=== PATIENT | female | born 1990 | race Caucasian/White ===

== ENCOUNTER 2017-05-09 05:23 | Observation (INO) | payer MEDICAID ==
[2017-05-09 06:24] LABS: Appearance CLOUDY (CLEAR); Bilirubin NEGATIVE (NEGATIVE); Blood 50 Ery/ul (0-5); Glucose 50 mg/dL (NEGATIVE); Ketones NEGATIVE (NEGATIVE); Leukocyte Esterase 2+ (NEGATIVE); Nitrite NEGATIVE (NEGATIVE); Protein,Urine Dip TRACE (Negative); Urobilinogen NORMAL mg/dL (0-1)
[2017-05-09 06:25] LABS: Bacteria MANY /HPF (NEGATIVE); Epithelial Cells MANY /HPF (FEW)
[2017-05-09 06:28] LABS: Amphetamine,Urine NEGATIVE (NEGATIVE); Barbiturate,Urine NEGATIVE (NEGATIVE); Benzodiazepine,Urine NEGATIVE (NEGATIVE); Cocaine,Urine NEGATIVE (NEGATIVE); Methadone,Urine NEGATIVE (NEGATIVE); Opiate,Urine NEGATIVE (NEGATIVE); PCP,Urine NEGATIVE (NEGATIVE); THC,Urine NEGATIVE (NEGATIVE)
[2017-05-09] MEDS ORDERED: Lactated Ringers 1,000 ML IV ONE (07:32)
[2017-05-09] MEDS ORDERED: TYLENOL 325 MG PO PRN (07:34)
[2017-05-09] MEDS ORDERED: Lactated Ringers 1,000 ML IV SCH (08:00)
[2017-05-09 08:43] LABS: BASOPHIL % 0.2 % (0.0-0.4); Basophil (Absolute #) 0.02 (0-0.4); Eosinophil % 0.1 % (0.00-5.0); Eosinophil (Absolute #) 0.01 (0-0.5); Granulocyte Absolute (ANC) 9.88 (1.4-6.9); Granulocytes % 86.9 % (36.0-66.0); Hematocrit 37.6 % (35-47); Hemoglobin 12.2 gm/dl (12.0-16.0); Lymphocyte (Absolute #) 1.01 (1.0-4.6); Lymphocytes % 8.9 % (24.0-44.0); Mean Cell Volume 84.5 fl (78-100); Mean Corpuscular Hemoglobin 27.4 pg (26-32); Mean Corpuscular Hgb Concent. 32.4 g/dl (32-36); Monocyte (Absolute #) 0.44 (0.0-1.3); Monocytes % 3.9 % (0.0-12.0); Platelet Count 179 K/mm3 (150-450); Red Blood Count 4.45 M/mm3 (4.1-5.4); Red Cell Distribution Width 15.4 % (11.5-14.0); White Blood Count 11.4 K/mm3 (4.0-10.5)
[2017-05-09 09:01] LABS: ALBUMIN 3.5 g/dL (3.5-5.0); ALKALINE PHOSPHATASE 90 U/L (38-126); BLOOD UREA NITROGEN 6 mg/dL (7-17); CHLORIDE 106 mmol/L (98-107); Calcium 8.7 mg/dL (8.4-10.2); Carbon Dioxide 19 mmol/L (22-30); Creatinine 1 0.49 mg/dL (0.52-1.04); Glucose 97 mg/dL (74-106); Potassium 3.1 mmol/L (3.5-5.1); SGOT/AST 19 U/L (14-36); SGPT/ALT 10 U/L (0-35); SODIUM 137 mmol/L (137-145); Total Protein 6.9 g/dL (6.3-8.2)
--- NOTE | 2017-05-09 09:48 | XRAY ---
Indication: well-being. Bleeding yesterday. 2-dimensional OB ultrasound performed. Comparison: February 28, 2017. Again there is a single viable intrauterine in cephalic presentation. heart rate 151 bpm. Normal three-vessel cord. Visualized stomach and bladder appear unremarkable. Placenta is again anterior without abruption/previa. BPD measures 8.16 cm corresponding to 32 weeks 6 days. HC measures 29.80 cm corresponding to 33 weeks 0 day. AC measures 29.54 cm corresponding to 33 weeks 4 days. FL measures 5.89 cm corresponding to 30 weeks 5 days. KSENIA is 25 cm. Impression: Single viable intrauterine with mean gestational age 32 weeks 4 days. Normal progression in .
[2017-05-09 14:43] VITALS: BP 119/56; PULSE 88
== END 2017-05-09 13:00 | disposition home or self-care (01) ==
LOC: OB 05:23
PROVIDERS: ADMIT Family Medicine; ATTEND Family Medicine
DX: Z34.03 Encounter for supervision of normal first pregnancy, third trimester (principal)
CPT/HCPCS: 36415; 76805; 80053; 80307; 81000; 85025; 87086; G0378; A9270-GY

== ENCOUNTER 2017-06-22 22:08 | Observation (INO) | payer MEDICAID ==
[2017-06-22 22:48] VITALS: BP 144/67; PULSE 100
[2017-06-22 23:20] LABS: Amphetamine,Urine NEGATIVE (NEGATIVE); Barbiturate,Urine NEGATIVE (NEGATIVE); Benzodiazepine,Urine NEGATIVE (NEGATIVE); Cocaine,Urine NEGATIVE (NEGATIVE); Methadone,Urine NEGATIVE (NEGATIVE); Opiate,Urine NEGATIVE (NEGATIVE); PCP,Urine NEGATIVE (NEGATIVE); THC,Urine NEGATIVE (NEGATIVE)
== END 2017-06-23 00:30 | disposition home or self-care (01) ==
LOC: OB 22:08 → UNDOADMOB 22:08 → UNDODISOB 06-23 00:30
PROVIDERS: ADMIT Family Medicine; ATTEND Family Medicine
DX: Z34.83 Encounter for supervision of other normal pregnancy, third trimester (principal)
CPT/HCPCS: 80307; G0378

== ENCOUNTER 2017-06-28 05:07 | Inpatient (IN) | payer MEDICAID ==
[2017-06-28] MEDS ORDERED: XYLOCAINE 1% HCL 20 ML MDV IJ PRN (05:09)
[2017-06-28] MEDS ORDERED: BRETHINE 1 MG/ML SQ PRN (05:09)
[2017-06-28] MEDS ORDERED: PITOCIN 30 UNITS/ LR 500 ML 500 ML IV SCH ×2 (05:30)
[2017-06-28 06:05] LABS: Amphetamine,Urine NEGATIVE (NEGATIVE); Barbiturate,Urine NEGATIVE (NEGATIVE); Benzodiazepine,Urine NEGATIVE (NEGATIVE); Cocaine,Urine NEGATIVE (NEGATIVE); Methadone,Urine NEGATIVE (NEGATIVE); Opiate,Urine NEGATIVE (NEGATIVE); PCP,Urine NEGATIVE (NEGATIVE); THC,Urine NEGATIVE (NEGATIVE)
[2017-06-28] MEDS: Lactated Ringers 1,000 ML IV SCH ×2 (07:15→10:42)
[2017-06-28 07:19] LABS: BASOPHIL % 0.2 % (0.0-0.4); Basophil (Absolute #) 0.03 (0-0.4); Eosinophil % 0.4 % (0.00-5.0); Eosinophil (Absolute #) 0.05 (0-0.5); Granulocyte Absolute (ANC) 10.18 (1.4-6.9); Granulocytes % 77.1 % (36.0-66.0); Lymphocyte (Absolute #) 2.29 (1.0-4.6); Lymphocytes % 17.3 % (24.0-44.0); Mean Cell Volume 85.6 fl (78-100); Mean Corpuscular Hemoglobin 27.8 pg (26-32); Mean Corpuscular Hgb Concent. 32.4 g/dl (32-36); Mean Platelet Volume 11.5 fl (6-9.5); Monocyte (Absolute #) 0.66 (0.0-1.3); Platelet Count 210 K/mm3 (150-450); Red Blood Count 4.32 M/mm3 (4.1-5.4); Red Cell Distribution Width 15.2 % (11.5-14.0); White Blood Count 13.2 K/mm3 (4.0-10.5)
[2017-06-28] MEDS ORDERED: Lactated Ringers 1,000 ML IV ONE ×2 (11:03→14:43)
[2017-06-28] MEDS ORDERED: Ephedrine Sulfate 50 MG/ML IV PRN (11:03)
[2017-06-28] MEDS ORDERED: OB EPIDURAL NAROPIN/SUFENTANIL IN NACL EPIDURAL PRN (11:03)
[2017-06-28] MEDS ORDERED: BICITRA 30 ML CUP PO SCH (13:00)
[2017-06-28] MEDS ORDERED: CLINDAMYCIN-D5W 900 MG/50 ML*** 900 MG/50 ML BAG IV SCH (13:00)
[2017-06-28] MEDS ORDERED: Reglan 10 MG/2 ML IV SCH (13:00)
[2017-06-28] MEDS ORDERED: Pepcid 20 MG VIAL IV SCH (13:00)
[2017-06-28 13:52] LABS: INR 0.9 (0.8-3.0)
[2017-06-28 13:54] LABS: PTT 26.1 SECONDS (25.3-37.0)
[2017-06-28 14:06] LABS: ABO TYPING O; Antibody Screen NEGATIVE (NEGATIVE); RH TYPING NEGATIVE
[2017-06-28] MEDS ORDERED: DEMEROL 50 MG IV PRN (14:19)
[2017-06-28] MEDS ORDERED: Mylicon 80MG PO PRN (14:19)
[2017-06-28] MEDS ORDERED: TYLENOL EXTRA STRENGTH 500 MG PO PRN (14:19)
[2017-06-28] MEDS ORDERED: Sodium Chloride 0.9% 10 ML FLUSH Syringe IJ PRN (14:19)
[2017-06-28] MEDS ORDERED: Anucort-HC SUPPOSITORY PR PRN (14:19)
[2017-06-28] MEDS ORDERED: Zofran 4 MG/2 ML VIAL IV PRN (14:19)
[2017-06-28] MEDS ORDERED: Dulcolax 10 MG SUPP PR PRN (14:19)
[2017-06-28] MEDS ORDERED: Narcan 0.4 MG/ML IV PRN (14:19)
[2017-06-28] MEDS ORDERED: MORPHINE SULFATE 2 MG INJ IV PRN (14:19)
[2017-06-28] MEDS ORDERED: LANSINOH 40 GM TOP PRN (14:19)
[2017-06-28] MEDS ORDERED: TUCKS TP PRN (14:19)
[2017-06-28] MEDS ORDERED: BENADRYL 50 MG/ML IV PRN (14:19)
[2017-06-28] MEDS ORDERED: Nubain 10 MG/ML IV PRN (14:19)
[2017-06-28] MEDS ORDERED: Dermoplast Spray TP ONE (14:19)
[2017-06-28] MEDS ORDERED: CLARITIN 10 MG PO PRN (14:19)
[2017-06-28] MEDS ORDERED: CORTISONE 1% CREAM TP PRN (14:19)
[2017-06-28] MEDS ORDERED: HOLD NARCOTIC ANALGESICS AND SEDATIVES X24 HR MC PRN (14:19)
[2017-06-28] MEDS ORDERED: Dextrose 5%-Lr IV Solution 1000 ML 1,000 ML IV SCH (14:30)
[2017-06-28 15:08] LABS: Appearance CLEAR (CLEAR)
--- NOTE | 2017-06-28 15:08 | OP ---
SURGERY DATE/TIME: 06/28/2017 1335 PREOPERATIVE DIAGNOSIS: Non-reassuring heart tones. POSTOPERATIVE DIAGNOSIS: Non-reassuring heart tones. PROCEDURE: Primary section. SURGEON: Gabriel Medrano M.D. ANESTHESIA: Spinal by Rikki Yoder CRNA. ESTIMATED BLOOD LOSS: 400 cc. IV FLUIDS: 1 liter of crystalloid. URINE OUTPUT: 50 cc clear straw-colored urine. SPECIMEN: Placenta was sent for pathology. DESCRIPTION OF PROCEDURE: The patient had elective induction of labor at 39-plus weeks, developed decreased variability with deep variable deceleration with a couple of sweeping decelerations that were more of a late appearance. Due to the non-reassuring heart tones, I discussed with her the risks, benefits and alternatives of primary section and she elected to proceed as recommended. She had her previously placed laboring epidural dosed for surgery and went to the OR. She was prepped and draped in usual sterile fashion. Adequate level of anesthesia was assessed. A low transverse skin incision was made by knife and carried down through the subcutaneous fat to the level of the fascia. The fascia was nicked on both sides of the midline and extended in horizontal fashion using curved Mendez scissors. The superior free edge of the fascia was grasped with Eduard clamps and the underlying rectus muscles were dissected free. The same was repeated inferiorly. The peritoneal cavity was opened bluntly and bladder blade was inserted. Bladder flap was created over the lower uterine segment. Horizontal uterine incision was made by knife and carried down to the level of the amniotic membranes which were carefully artificially ruptured. The uterine incision was extended in horizontal fashion. A viable female was delivered from the vertex presentation. Oropharynx and nares were bulb suctioned. The cord was clamped and cut and she was handed off to the awaiting nursery team. The placenta was removed from the uterus and uterus was exteriorized. The uterine cavity was sponge curetted clean with lap sponge and then the uterine incision was closed with #1 chromic in a running locked fashion. A second layer was used with good closure and good hemostasis. Posterior cul-de-sac was wiped free of blood and clot with moist lap sponge and then the uterus was returned to the peritoneal cavity. The lateral gutters were wiped free of blood and clot. Again the uterine incision was inspected at this time and noted to be hemostatic with good closure. Next, the fascia was closed with 0 Vicryl in a running fashion with good closure and good hemostasis were achieved. The skin was irrigated with warm, sterile saline and 3-0 Vicryl interrupted sutures were used to close the subcutaneous fat. Finally the skin layer was closed with 4-0 undyed Vicryl in a running subcuticular fashion. Steri-Strips and occlusive dressing were placed over the incision and the patient was transferred to the recovery room in good condition.
[2017-06-28 15:09] LABS: Bilirubin NEGATIVE (NEGATIVE); Blood 250 Ery/ul (0-5); Glucose NEGATIVE (NEGATIVE); Ketones NEGATIVE (NEGATIVE); Leukocyte Esterase NEGATIVE (NEGATIVE); Nitrite NEGATIVE (NEGATIVE); Protein,Urine Dip NEGATIVE (Negative); Urobilinogen NORMAL mg/dL (0-1)
[2017-06-28] MEDS ORDERED: BREVIBLOC 100 MG/10 ML IV ONE (15:44)
[2017-06-28] MEDS ORDERED: Zofran 4 MG/2 ML VIAL IV ONE (15:44)
[2017-06-28] MEDS ORDERED: XYLOCAINE 2%/Epi 1:200000 20ML VIAL MPF IJ ONE (15:44)
[2017-06-28] MEDS ORDERED: Decadron 4 MG INJ IV ONE (15:44)
[2017-06-28] MEDS ORDERED: MARCAINE 0.5%-EPI 1:200,000 VL IJ ONE (15:44)
[2017-06-28] MEDS ORDERED: Astramorph-Pf 5 MG/10 ML IV ONE (15:44)
[2017-06-28] MEDS ORDERED: Adacel Vial IM ONE (16:00)
[2017-06-28 16:18] LABS: ABO TYPING O; ANTIBODY SCREEN NEGATIVE (NEGATIVE); RH TYPING NEGATIVE
[2017-06-28] MEDS ORDERED: Rhogam Plus 300 MCG IM ONE (18:00)
[2017-06-28 18:20] LABS: Hematocrit 32.1 % (35-47); Hemoglobin 10.3 gm/dl (12.0-16.0); Mean Cell Volume 86.5 fl (78-100); Mean Corpuscular Hemoglobin 27.7 pg (26-32); Mean Corpuscular Hgb Concent. 32.1 g/dl (32-36); Mean Platelet Volume 11.3 fl (6-9.5); Platelet Count 200 K/mm3 (150-450); Red Blood Count 3.71 M/mm3 (4.1-5.4); Red Cell Distribution Width 15.2 % (11.5-14.0); White Blood Count 16.4 K/mm3 (4.0-10.5)
[2017-06-28 18:35] LABS: INR 0.96 (0.8-3.0)
[2017-06-28 18:37] LABS: PTT 24.3 SECONDS (25.3-37.0)
[2017-06-28 18:40] LABS: ALKALINE PHOSPHATASE 115 U/L (38-126); BLOOD UREA NITROGEN 8 mg/dL (7-17); CHLORIDE 108 mmol/L (98-107); Calcium 8.6 mg/dL (8.4-10.2); Carbon Dioxide 20 mmol/L (22-30); Glucose 161 mg/dL (74-106); Potassium 4.1 mmol/L (3.5-5.1); SGOT/AST 12 U/L (14-36); SODIUM 142 mmol/L (137-145)
[2017-06-28 18:46] LABS: SGPT/ALT 10 U/L (0-35)
[2017-06-28] MEDS ORDERED: Hemabate IM ONE (19:26)
[2017-06-28] MEDS: Colace 100 MG PO SCH (20:45)
[2017-06-28] MEDS: MOTRIN 400 MG PO PRN (20:46)
[2017-06-28] MEDS: PERCOCET TABLET 5/325MG PO PRN (20:46)
[2017-06-29] MEDS: MOTRIN 400 MG PO PRN ×3 (03:42→19:32)
[2017-06-29] MEDS: PERCOCET TABLET 5/325MG PO PRN ×3 (03:43→14:14)
[2017-06-29 05:59] LABS: BASOPHIL % 0.2 % (0.0-0.4); Basophil (Absolute #) 0.03 (0-0.4); Eosinophil (Absolute #) 0 (0-0.5); Granulocyte Absolute (ANC) 14.73 (1.4-6.9); Granulocytes % 84.2 % (36.0-66.0); Hematocrit 28.2 % (35-47); Hemoglobin 8.9 gm/dl (12.0-16.0); Lymphocyte (Absolute #) 1.81 (1.0-4.6); Lymphocytes % 10.3 % (24.0-44.0); Mean Cell Volume 86.8 fl (78-100); Mean Corpuscular Hgb Concent. 31.6 g/dl (32-36); Mean Platelet Volume 11.3 fl (6-9.5); Monocyte (Absolute #) 0.93 (0.0-1.3); Monocytes % 5.3 % (0.0-12.0); Platelet Count 205 K/mm3 (150-450); Red Blood Count 3.25 M/mm3 (4.1-5.4); Red Cell Distribution Width 15.1 % (11.5-14.0); White Blood Count 17.5 K/mm3 (4.0-10.5)
[2017-06-29 06:10] LABS: Mean Corpuscular Hemoglobin 27.3 pg (26-32)
[2017-06-29] MEDS: Colace 100 MG PO SCH ×2 (10:00→22:25)
[2017-06-29] MEDS: FERREX 150 PO SCH (10:00)
[2017-06-29] MEDS ORDERED: Phenergan 25 MG INJ IM PRN (14:19)
[2017-06-29] MEDS ORDERED: DEMEROL 75 MG IM PRN (14:19)
[2017-06-29] MEDS ORDERED: Ambien 10 MG PO PRN (14:19)
[2017-06-29] MEDS ORDERED: Restoril 15 MG PO PRN (14:19)
[2017-06-29 15:57] VITALS: O2SAT 98
[2017-06-29] MEDS: NORCO 5/325 MG PO PRN (19:32)
[2017-06-30] MEDS: NORCO 5/325 MG PO PRN ×4 (01:23→20:48)
[2017-06-30] MEDS: MOTRIN 400 MG PO PRN ×3 (02:21→16:09)
[2017-06-30 06:17] LABS: BASOPHIL % 0.4 % (0.0-0.4); Basophil (Absolute #) 0.04 (0-0.4); Eosinophil % 0.5 % (0.00-5.0); Eosinophil (Absolute #) 0.05 (0-0.5); Granulocytes % 72.9 % (36.0-66.0); Hematocrit 24.4 % (35-47); Hemoglobin 7.6 gm/dl (12.0-16.0); Lymphocyte (Absolute #) 2.15 (1.0-4.6); Lymphocytes % 20.1 % (24.0-44.0); Mean Cell Volume 88.1 fl (78-100); Mean Corpuscular Hemoglobin 27.4 pg (26-32); Mean Corpuscular Hgb Concent. 31.1 g/dl (32-36); Mean Platelet Volume 11.1 fl (6-9.5); Monocyte (Absolute #) 0.65 (0.0-1.3); Monocytes % 6.1 % (0.0-12.0); Platelet Count 169 K/mm3 (150-450); Red Blood Count 2.77 M/mm3 (4.1-5.4); Red Cell Distribution Width 15.1 % (11.5-14.0); White Blood Count 10.7 K/mm3 (4.0-10.5)
[2017-06-30] MEDS: FERREX 150 PO SCH (09:13)
[2017-06-30] MEDS: Colace 100 MG PO SCH ×2 (09:14→20:47)
[2017-07-01] MEDS: MOTRIN 400 MG PO PRN (01:56)
[2017-07-01 03:21] VITALS: PULSE 105
[2017-07-01 06:19] LABS: BASOPHIL % 0.3 % (0.0-0.4); Basophil (Absolute #) 0.03 (0-0.4); Eosinophil % 1.4 % (0.00-5.0); Eosinophil (Absolute #) 0.17 (0-0.5); Granulocyte Absolute (ANC) 9.17 (1.4-6.9); Granulocytes % 76.4 % (36.0-66.0); Hematocrit 24.8 % (35-47); Hemoglobin 7.7 gm/dl (12.0-16.0); Lymphocyte (Absolute #) 1.95 (1.0-4.6); Lymphocytes % 16.3 % (24.0-44.0); Mean Cell Volume 89.5 fl (78-100); Mean Platelet Volume 11.3 fl (6-9.5); Monocyte (Absolute #) 0.67 (0.0-1.3); Monocytes % 5.6 % (0.0-12.0); Platelet Count 200 K/mm3 (150-450); Red Blood Count 2.77 M/mm3 (4.1-5.4); Red Cell Distribution Width 15.4 % (11.5-14.0)
[2017-07-01 06:32] LABS: Mean Corpuscular Hemoglobin 27.7 pg (26-32)
[2017-07-01 08:56] VITALS: BP 123/63
[2017-07-01] MEDS: FERREX 150 PO SCH (09:55)
[2017-07-01] MEDS: Colace 100 MG PO SCH (09:55)
== END 2017-07-01 11:15 | disposition home or self-care (01) | DRG 766 ==
LOC: OB 05:07 → OBSVTOIN 08:52
PROVIDERS: ADMIT Family Medicine; ATTEND Family Medicine
PROC: 10D00Z1 Extraction of Products of Conception, Low, Open Approach (ICD-10-PCS; principal; 2017-06-28)
DX: O76 Abnormality in fetal heart rate and rhythm complicating labor and delivery (principal); Z3A.39 39 weeks gestation of pregnancy; Z37.0 Single live birth
CPT/HCPCS: 36415; 64488; 76937; 76942; 80053; 80307; 81002; 85025; 85027; 85461; 85610; 85730; 86850; 86900; 86901; 88307; 90471; 90715; 94799; 96372; G0378; J1100; J2274; J2405; J2590; J2790; J2795; L0625; A9270-GY

== ENCOUNTER 2021-09-08 00:56 | Emergency (ER) | payer BC, OTHER ==
[2021-09-08] MEDS ORDERED: Sodium Chloride 0.9% 1000 ML 1,000 ML IV STA (01:01)
[2021-09-08] MEDS ORDERED: Ativan 2 MG/1 ML VIAL IV ONE (01:05)
[2021-09-08] MEDS ORDERED: Sodium Chloride 0.9% 1000 ML 1,000 ML ONE (01:12)
[2021-09-08 01:36] LABS: Absolute Neutrophil Ct (ANC) 5.42 x10^3/uL (1.4-6.9); Basophil (Absolute #) 0.11 x10^3/uL (0-0.4); Eosinophil % 2.7 % (0.00-5.0); Eosinophil (Absolute #) 0.26 x10^3/uL (0-0.5); Hematocrit 41.5 % (35-47); Hemoglobin 12.7 g/dL (12.0-16.0); Lymphocyte (Absolute #) 3.11 x10^3/uL (1.0-4.6); Lymphocytes % 32.4 % (24.0-44.0); Mean Cell Volume 83.5 fL (78-100); Mean Corpuscular Hemoglobin 25.6 pg (26-32); Mean Corpuscular Hgb Concent. 30.6 g/dL (32-36); Mean Platelet Volume 10.8 fL (7.5-11.0); Monocyte (Absolute #) 0.69 x10^3/uL (0.0-1.3); Monocytes % 7.2 % (0.0-12.0); Neutrophil % 56.5 % (36.0-66.0); Platelet Count 263 x10^3/uL (150-450); Red Blood Count 4.97 x10^6/uL (4.1-5.4); Red Cell Distribution Width 15.2 % (11.5-14.0); White Blood Count 9.6 x10^3/uL (4.0-10.5)
[2021-09-08] MEDS ORDERED: Ativan 2 MG/1 ML VIAL ONE (01:43)
[2021-09-08 01:44] LABS: Epithelial Cells RARE /HPF (FEW); Mucus SLIGHT /HPF (NEGATIVE)
[2021-09-08 01:45] LABS: Appearance CLEAR (CLEAR); Bilirubin NEGATIVE (NEGATIVE); Glucose NEGATIVE (NEGATIVE)
[2021-09-08 01:46] LABS: Dipstick done @ ? MAIN LAB; Ketones NEGATIVE (NEGATIVE); Nitrite NEGATIVE (NEGATIVE); Protein,Urine Dip NEGATIVE (Negative); RBC NEGATIVE Ery/ul (0-5); Urobilinogen 1 mg/dL (0-1)
[2021-09-08 01:47] LABS: Urine Cultured Indicated? NO
[2021-09-08 01:49] LABS: INR 0.94 (0.8-3.0)
[2021-09-08 01:50] LABS: ALBUMIN 4.1 g/dL (3.5-5.0); ALKALINE PHOSPHATASE 85 U/L (38-126); AMYLASE 99 U/L (30-110); ANION GAP 12.5 MEQ/L (5-15); BLOOD UREA NITROGEN 11 mg/dL (7-17); CHLORIDE 106 mmol/L (98-107); Carbon Dioxide 25 mmol/L (22-30); Creatinine 1 0.79 mg/dL (0.52-1.04); EST GLOMERULAR FILTRATION RATE > 60.0 ML/MIN; Glucose 109 mg/dL (74-106); LIPASE 116 U/L (23-300); Potassium 3.3 mmol/L (3.5-5.1); SGOT/AST 20 U/L (14-36); SGPT/ALT 18 U/L (0-35); SODIUM 140 mmol/L (137-145); Total Protein 7.6 g/dL (6.3-8.2)
[2021-09-08 01:56] LABS: Amphetamine,Urine NEGATIVE (NEGATIVE); Barbiturate,Urine NEGATIVE (NEGATIVE); Benzodiazepine,Urine NEGATIVE (NEGATIVE); Methadone,Urine NEGATIVE (NEGATIVE); Opiate,Urine NEGATIVE (NEGATIVE); PCP,Urine NEGATIVE (NEGATIVE); THC,Urine NEGATIVE (NEGATIVE)
--- NOTE | 2021-09-08 02:43 | ERPHSYRPT ---
- History of Present Illness Time Seen by Provider: 09/08/21 01:05 Source: patient Exam Limitations: no limitations Patient Subjective Stated Complaint: pt states she went to the bathroom around 0000 and states when she sat down to go to the toilet, she felt lightheaded and strange, after the feeling passed she states she felt a heaviness in her arms and legs and then yelled for her . Pt has no pain or SOB at this time, pt states she did not ever feel any chest pain during the episode Triage Nursing Assessment: pt alert and orinted, able to answer all questions correctly, all vitals wnl Physician History: Patient is a 31-year-old female who awoke from sleep to go to the bathroom while sitting on the toilet she felt like she was going to fall over she could not breathe. This occurred approximately 1 hour prior to arrival she denies any pain but says her hands and feet felt heavy and numb and tingly she did have COVID-vaccine but was sick with the disease 2 weeks ago. Witnessed: unwitnessed Prior Episodes: single episode today Precipitating Factors: unknown Context: sitting Charcter of event(s): almost passed out Allergies/Adverse Reactions: amoxicillin [From Augmentin] Allergy (Verified 09/08/21 01:09) clavulanic acid [From Augmentin] Allergy (Verified 09/08/21 01:09) Home Medications: No Reportable Medications [No Reported Medications] 06/28/17 [History] Hx Influenza Vaccination/Date Given: Yes (2011) Hx Pneumococcal Vaccination/Date Given: No Travel Risk - International Travel Have you traveled outside of the country in past 3 weeks: No - Coronavirus Screening Are you exhibiting any of the following symptoms?: No Close contact with a COVID-19 positive Pt in past 14-21 Days: No - Vaccine Status Have you recieved a Covid-19 vaccination: Yes Machine Biller: Moderna - Vaccination Dates Date of 2cond Vaccination (if applicable): unknown - Past Medical History Pertinent Past Medical History: Yes Neurological History: No Pertinent History ENT History: No Pertinent History Cardiac History: Other Respiratory History: No Pertinent History Endocrine Medical History: No Pertinent History Musculoskeletal History: No Pertinent History GI Medical History: No Pertinent History History: No Pertinent History Psycho-Social History: No Pertinent History Female Reproductive Disorders: No Pertinent History Other Medical History: PROLAPSED VALVE - Past Surgical History Past Surgical History: No - Social History Smoking Status: Former smoker How long have you smoked: 7 years Exposure to second hand smoke: Yes Drug Use: none Patient Lives Alone: No - Female History Hx Last Menstrual Period: 08/03/21 Hx Now: No - Review of Systems Constitutional: Weakness Eyes: No Symptoms Ears, Nose, & Throat: No Symptoms Respiratory: No Cough, No Dyspnea Cardiac: No Chest Pain, No Edema, No Syncope Abdominal/Gastrointestinal: No Abdominal Pain, No Nausea, No Vomiting, No Diarrhea Genitourinary Symptoms: No Dysuria Musculoskeletal: No Back Pain, No Neck Pain Skin: No Rash Neurological: Lethargy Psychological: Anxiety Endocrine: No Symptoms Hematologic/Lymphatic: No Symptoms Physical Exam - Nursing Vital Signs Nursing Vital Signs: Initial Vital Signs Temperature 98.4 F 09/08/21 00:58 Pulse Rate 98 H 09/08/21 00:58 Respiratory Rate 18 09/08/21 00:58 Blood Pressure 167/102 09/08/21 00:58 O2 Sat by Pulse Oximetry 100 09/08/21 00:58 Pain Scale Pain Intensity 0 - Ed Coma Scale Best Eye Response (Ed): (4) open spontaneously Best Verbal Response (Viper): (5) oriented Best Motor Response (Ed): (6) obeys commands Ed Total: 15 - Physical Exam General Appearance: mild distress Eye Exam: bilateral eye: normal inspection, PERRL, EOMI Ears, Nose, Throat Exam: normal ENT inspection, pharynx normal, moist mucous membranes Neck Exam: normal inspection, non-tender, supple, full range of motion Respiratory: normal breath sounds, lungs clear, No chest tenderness, No respiratory distress Cardiovascular: regular rate/rhythm, capillary refill <2 sec, No murmur, No pulse deficit Gastrointestinal: soft, No tenderness, No distention, No mass Back Exam: normal inspection, normal range of motion, No CVA tenderness, No vertebral tenderness Extremity Exam: normal inspection, normal range of motion, pelvis stable, No tenderness Peripheral Pulses: carotid (R): 2+, carotid (L): 2+ Mental Status: alert, 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, 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 Exam: normal speech, PERRL, No facial droop Coordination/Gait: normal gait Motor/Sensory: no motor deficit, no sensory deficit, no pronator drift Skin Exam: normal color, warm, dry SpO2 Interpretation: normal SpO2: 98 O2 Delivery: Room Air - Radiology Exams Chest X-ray Interpretation: Interpreted by me, Negative Ordered Tests: Active Orders 24 hr Category Date Time Status EKG-ER Only STAT Care 09/08/21 01:01 Active IV Insertion STAT Care 09/08/21 01:01 Active CHEST 1 VIEW (PORTABLE) Stat Exams 09/08/21 01:02 Taken AMYLASE Stat Lab 09/08/21 01:33 Completed CBC W DIFF Stat Lab 09/08/21 01:33 Completed CMP Stat Lab 09/08/21 01:33 Completed D-DIMER QUANTITATIVE Stat Lab 09/08/21 01:33 Completed HCG,QUALITATIVE URINE Stat Lab 09/08/21 01:23 Completed LIPASE Stat Lab 09/08/21 01:33 Completed Lactic Acid Stat Lab 09/08/21 01:50 Completed PROTIME WITH INR Stat Lab 09/08/21 01:33 Completed TROPONIN Q3H Lab 09/08/21 01:33 Completed TROPONIN Q3H Lab 09/08/21 04:15 Ordered TROPONIN Q3H Lab 09/08/21 07:15 Ordered TROPONIN Q3H Lab 09/08/21 10:15 Ordered TROPONIN Q3H Lab 09/08/21 13:15 Ordered UA W/RFX CULTURE Stat Lab 09/08/21 01:27 Completed Urine Triage Profile Stat Lab 09/08/21 01:33 Completed Medication Summary Discontinued Medications Generic Name Dose Route Start Last Admin Trade Name Freq PRN Reason Stop Dose Admin Sodium Chloride 1,000 mls @ 999 mls/hr 09/08/21 01:01 09/08/21 01:13 Sodium Chloride 0.9% 1000 Ml IV 09/08/21 02:01 999 mls/hr .Q1H1M STA Administration Sodium Chloride Confirm 09/08/21 01:12 Sodium Chloride 0.9% 1000 Ml Administered 09/08/21 01:13 Dose 1,000 mls @ ud .ROUTE .STK-MED ONE Lorazepam 1 mg 09/08/21 01:05 09/08/21 01:43 Lorazepam 2 Mg/1 Ml 2 Mg Vial IV 09/08/21 01:06 1 mg STAT ONE Administration Lorazepam Confirm 09/08/21 01:43 Lorazepam 2 Mg/1 Ml 2 Mg Vial Administered 09/08/21 01:44 Dose 2 mg .ROUTE .STK-MED ONE Lab/Rad Data: Laboratory Result Diagrams 09/08/21 01:33 09/08/21 01:33 Laboratory Results 09/08/21 09/08/21 09/08/21 Range/Units 01:50 01:33 01:33 WBC (4.0-10.5) x10^3/uL RBC (4.1-5.4) x10^6/uL Hgb (12.0-16.0) g/dL Hct (35-47) % MCV (78-100) fL MCH (26-32) pg MCHC (32-36) g/dL RDW (11.5-14.0) % Plt Count (150-450) x10^3/uL MPV (7.5-11.0) fL Gran % (36.0-66.0) % Immature Gran % (Auto) (0.00-0.4) % Nucleat RBC Rel Count (0.00-0.1) % Eos # (Auto) (0-0.5) x10^3/uL Immature Gran # (Auto) (0.00-0.03) x10^3u/L Absolute Lymphs (auto) (1.0-4.6) x10^3/uL Absolute Monos (auto) (0.0-1.3) x10^3/uL Absolute Nucleated RBC (0.00-0.01) x10^3u/L Lymphocytes % (24.0-44.0) % Monocytes % (0.0-12.0) % Eosinophils % (0.00-5.0) % Basophils % (0.0-0.4) % Absolute Granulocytes (1.4-6.9) x10^3/uL Basophils # (0-0.4) x10^3/uL PT (9.4-12.5) SECONDS INR (0.8-3.0) D-Dimer < 0.19 (0.0-0.50) mg/L Sodium (137-145) mmol/L Potassium (3.5-5.1) mmol/L Chloride (98-107) mmol/L Carbon Dioxide (22-30) mmol/L Anion Gap (5-15) MEQ/L BUN (7-17) mg/dL Creatinine (0.52-1.04) mg/dL Estimated GFR ML/MIN Glucose (74-106) mg/dL Lactic Acid 1.3 (0.4-2.0) Calcium (8.4-10.2) mg/dL Total Bilirubin (0.2-1.3) mg/dL AST (14-36) U/L ALT (0-35) U/L Alkaline Phosphatase (38-126) U/L Troponin I < 0.012 (0.000-0.034) ng/mL Serum Total Protein (6.3-8.2) g/dL Albumin (3.5-5.0) g/dL Amylase (30-110) U/L Lipase (23-300) U/L Urinalys Dipstick Clnc Urine Color (YELLOW) Urine Appearance (CLEAR) Urine pH (5-6) Ur Specific Crowheart (1.005-1.025) POC Urine Protein Conf (Negative) Urine Ketones (NEGATIVE) Urine Nitrite (NEGATIVE) Urine Bilirubin (NEGATIVE) Urine Urobilinogen (0-1) mg/dL Urine Leukocytes (NEGATIVE) Urine WBC (Auto) (0-5) /HPF Urine RBC (Auto) (0-2) /HPF U Epithel Cells (Auto) (FEW) /HPF Urine Bacteria (Auto) (NEGATIVE) /HPF Urine RBC (0-5) Germán/ul Other Casts (Auto) (NEGATIVE) /LPF Urine Mucus (Auto) (NEGATIVE) /HPF Ur Culture Indicated? Urine Glucose (NEGATIVE) mg/dL Urine HCG, Qual (Negative) Urine Opiates Level (NEGATIVE) Ur Methadone (NEGATIVE) Urine Barbiturates (NEGATIVE) Ur Phencyclidine (PCP) (NEGATIVE) Urine Amphetamine (NEGATIVE) U Benzodiazepine Level (NEGATIVE) Urine Marijuana (THC) (NEGATIVE) 09/08/21 09/08/21 09/08/21 Range/Units 01:33 01:33 01:33 WBC (4.0-10.5) x10^3/uL RBC (4.1-5.4) x10^6/uL Hgb (12.0-16.0) g/dL Hct (35-47) % MCV (78-100) fL MCH (26-32) pg MCHC (32-36) g/dL RDW (11.5-14.0) % Plt Count (150-450) x10^3/uL MPV (7.5-11.0) fL Gran % (36.0-66.0) % Immature Gran % (Auto) (0.00-0.4) % Nucleat RBC Rel Count (0.00-0.1) % Eos # (Auto) (0-0.5) x10^3/uL Immature Gran # (Auto) (0.00-0.03) x10^3u/L Absolute Lymphs (auto) (1.0-4.6) x10^3/uL Absolute Monos (auto) (0.0-1.3) x10^3/uL Absolute Nucleated RBC (0.00-0.01) x10^3u/L Lymphocytes % (24.0-44.0) % Monocytes % (0.0-12.0) % Eosinophils % (0.00-5.0) % Basophils % (0.0-0.4) % Absolute Granulocytes (1.4-6.9) x10^3/uL Basophils # (0-0.4) x10^3/uL PT 10.0 (9.4-12.5) SECONDS INR 0.94 (0.8-3.0) D-Dimer (0.0-0.50) mg/L Sodium 140 (137-145) mmol/L Potassium 3.3 L (3.5-5.1) mmol/L Chloride 106 (98-107) mmol/L Carbon Dioxide 25 (22-30) mmol/L Anion Gap 12.5 (5-15) MEQ/L BUN 11 (7-17) mg/dL Creatinine 0.79 (0.52-1.04) mg/dL Estimated GFR > 60.0 ML/MIN Glucose 109 H (74-106) mg/dL Lactic Acid (0.4-2.0) Calcium 9.0 (8.4-10.2) mg/dL Total Bilirubin 0.60 (0.2-1.3) mg/dL AST 20 (14-36) U/L ALT 18 (0-35) U/L Alkaline Phosphatase 85 (38-126) U/L Troponin I (0.000-0.034) ng/mL Serum Total Protein 7.6 (6.3-8.2) g/dL Albumin 4.1 (3.5-5.0) g/dL Amylase 99 (30-110) U/L Lipase 116 (23-300) U/L Urinalys Dipstick Clnc Urine Color (YELLOW) Urine Appearance (CLEAR) Urine pH (5-6) Ur Specific Crowheart (1.005-1.025) POC Urine Protein Conf (Negative) Urine Ketones (NEGATIVE) Urine Nitrite (NEGATIVE) Urine Bilirubin (NEGATIVE) Urine Urobilinogen (0-1) mg/dL Urine Leukocytes (NEGATIVE) Urine WBC (Auto) (0-5) /HPF Urine RBC (Auto) (0-2) /HPF U Epithel Cells (Auto) (FEW) /HPF Urine Bacteria (Auto) (NEGATIVE) /HPF Urine RBC (0-5) Germán/ul Other Casts (Auto) (NEGATIVE) /LPF Urine Mucus (Auto) (NEGATIVE) /HPF Ur Culture Indicated? Urine Glucose (NEGATIVE) mg/dL Urine HCG, Qual (Negative) Urine Opiates Level NEGATIVE (NEGATIVE) Ur Methadone NEGATIVE (NEGATIVE) Urine Barbiturates NEGATIVE (NEGATIVE) Ur Phencyclidine (PCP) NEGATIVE (NEGATIVE) Urine Amphetamine NEGATIVE (NEGATIVE) U Benzodiazepine Level NEGATIVE (NEGATIVE) Urine Marijuana (THC) NEGATIVE (NEGATIVE) 09/08/21 09/08/21 09/08/21 Range/Units 01:33 01:27 01:23 WBC 9.6 (4.0-10.5) x10^3/uL RBC 4.97 (4.1-5.4) x10^6/uL Hgb 12.7 (12.0-16.0) g/dL Hct 41.5 (35-47) % MCV 83.5 (78-100) fL MCH 25.6 L (26-32) pg MCHC 30.6 L (32-36) g/dL RDW 15.2 H (11.5-14.0) % Plt Count 263 (150-450) x10^3/uL MPV 10.8 (7.5-11.0) fL Gran % 56.5 (36.0-66.0) % Immature Gran % (Auto) 0.1 (0.00-0.4) % Nucleat RBC Rel Count 0.0 (0.00-0.1) % Eos # (Auto) 0.26 (0-0.5) x10^3/uL Immature Gran # (Auto) 0.01 (0.00-0.03) x10^3u/L Absolute Lymphs (auto) 3.11 (1.0-4.6) x10^3/uL Absolute Monos (auto) 0.69 (0.0-1.3) x10^3/uL Absolute Nucleated RBC 0.00 (0.00-0.01) x10^3u/L Lymphocytes % 32.4 (24.0-44.0) % Monocytes % 7.2 (0.0-12.0) % Eosinophils % 2.7 (0.00-5.0) % Basophils % 1.1 (0.0-0.4) % Absolute Granulocytes 5.42 (1.4-6.9) x10^3/uL Basophils # 0.11 (0-0.4) x10^3/uL PT (9.4-12.5) SECONDS INR (0.8-3.0) D-Dimer (0.0-0.50) mg/L Sodium (137-145) mmol/L Potassium (3.5-5.1) mmol/L Chloride (98-107) mmol/L Carbon Dioxide (22-30) mmol/L Anion Gap (5-15) MEQ/L BUN (7-17) mg/dL Creatinine (0.52-1.04) mg/dL Estimated GFR ML/MIN Glucose (74-106) mg/dL Lactic Acid (0.4-2.0) Calcium (8.4-10.2) mg/dL Total Bilirubin (0.2-1.3) mg/dL AST (14-36) U/L ALT (0-35) U/L Alkaline Phosphatase (38-126) U/L Troponin I (0.000-0.034) ng/mL Serum Total Protein (6.3-8.2) g/dL Albumin (3.5-5.0) g/dL Amylase (30-110) U/L Lipase (23-300) U/L Urinalys Dipstick Clnc MAIN LAB Urine Color YELLOW (YELLOW) Urine Appearance CLEAR (CLEAR) Urine pH 6.0 (5-6) Ur Specific [place] 1.020 (1.005-1.025) POC Urine Protein Conf NEGATIVE (Negative) Urine Ketones NEGATIVE (NEGATIVE) Urine Nitrite NEGATIVE (NEGATIVE) Urine Bilirubin NEGATIVE (NEGATIVE) Urine Urobilinogen 1 (0-1) mg/dL Urine Leukocytes SMALL (NEGATIVE) Urine WBC (Auto) 6-10 (0-5) /HPF Urine RBC (Auto) 3-5 (0-2) /HPF U Epithel Cells (Auto) RARE (FEW) /HPF Urine Bacteria (Auto) NONE (NEGATIVE) /HPF Urine RBC NEGATIVE (0-5) Germán/ul Other Casts (Auto) NEGATIVE (NEGATIVE) /LPF Urine Mucus (Auto) SLIGHT (NEGATIVE) /HPF Ur Culture Indicated? NO Urine Glucose NEGATIVE (NEGATIVE) mg/dL Urine HCG, Qual NEGATIVE (Negative) Urine Opiates Level (NEGATIVE) Ur Methadone (NEGATIVE) Urine Barbiturates (NEGATIVE) Ur Phencyclidine (PCP) (NEGATIVE) Urine Amphetamine (NEGATIVE) U Benzodiazepine Level (NEGATIVE) Urine Marijuana (THC) (NEGATIVE) - Progress Progress: improved - Departure Departure Disposition: Home Clinical Impression: Hyperventilation Condition: Stable Critical Care Time: No Referrals: JEF ANNE MD [Primary Care Provider] - Follow up/PCP as directed Instructions: Near Fainting (DC)
[2021-09-08 03:11] VITALS: BP 100/54; PULSE 64; O2SAT 96
[2021-09-08 04:08] LABS: INFLUENZA A NEGATIVE (NEGATIVE); INFLUENZA B NEGATIVE (NEGATIVE); RESPIRATORY SYNCTIAL VIRUS NEGATIVE (Negative)
[2021-09-08 04:20] LABS: SARS-CoV-2 Xpert Express POSITIVE (NEGATIVE)
--- NOTE | 2021-09-08 09:48 | XRAY ---
Indication: Near syncope. Comparison: None Portable chest demonstrates normal heart and lungs. Bony thorax intact.
== END 2021-09-08 03:40 | disposition home or self-care (01) ==
LOC: ED 00:56
DX: R06.4 Hyperventilation (principal); R55 Syncope and collapse; Z86.16 Personal history of COVID-19
CPT/HCPCS: 0241U; 36000; 36415; 71045; 80053; 80307; 81015; 81025; 82150; 83605; 83690; 84484; 85025; 85379; 85610; 93005; 96360; 96374; 99284; J2060

== ENCOUNTER 2021-09-11 16:23 | Emergency (ER) | payer OTHER ==
[2021-09-11] MEDS ORDERED: Ativan 1 MG PO ONE (17:01)
--- NOTE | 2021-09-11 17:08 | ERPHSYRPT ---
- History of Present Illness Time Seen by Provider: 09/11/21 16:40 Source: patient Exam Limitations: no limitations Patient Subjective Stated Complaint: pt here for a panic attack, she states she was here recently for samething and that they are getting worse, and having them daily Triage Nursing Assessment: pt alert, slow to respond, anxious, face flushed,skin warm and dry, she states arms and legs fell heavy Physician History: 31-year-old female with history of anxiety who is going through a lot of stress lately presented in the ER with sudden onset heaviness in the chest, difficulty breathing, throat closing sensation as if everything is closing on her. This happened few days ago. Patient reports she is having numbness around her lips and her whole body feels heavy and numb. Report having similar symptoms few days ago. Denies any alcohol or drug use. Timing/Duration: hour(s) (1), constant, sudden, improved Severity: moderate Modifying Factors: Improves With: nothing Associated Symptoms: shortness of breath, chest pain Allergies/Adverse Reactions: amoxicillin [From Augmentin] Allergy (Verified 09/11/21 16:30) clavulanic acid [From Augmentin] Allergy (Verified 09/11/21 16:30) Hx Tetanus, Diphtheria Vaccination/Date Given: No Hx Influenza Vaccination/Date Given: Yes (2011) Hx Pneumococcal Vaccination/Date Given: No Immunizations Up to Date: Yes Travel Risk - International Travel Have you traveled outside of the country in past 3 weeks: No - Coronavirus Screening Are you exhibiting any of the following symptoms?: No - Vaccine Status Have you recieved a Covid-19 vaccination: Yes [employer] 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 - Vaccination Dates Date of 2cond Vaccination (if applicable): unknown - Review of Systems Constitutional: No Symptoms Eyes: No Symptoms Ears, Nose, & Throat: No Symptoms Respiratory: Dyspnea Cardiac: Chest Pain Abdominal/Gastrointestinal: No Symptoms Genitourinary Symptoms: No Symptoms Musculoskeletal: No Symptoms Skin: No Symptoms Neurological: No Symptoms Psychological: Anxiety, No Suicidal Ideations, No Homicidal Ideations Endocrine: No Symptoms Hematologic/Lymphatic: No Symptoms Immunological/Allergic: No Symptoms - Past Medical History Pertinent Past Medical History: Yes Neurological History: No Pertinent History ENT History: No Pertinent History Cardiac History: Other Respiratory History: No Pertinent History Endocrine Medical History: No Pertinent History Musculoskeletal History: No Pertinent History GI Medical History: No Pertinent History History: No Pertinent History Psycho-Social History: No Pertinent History Female Reproductive Disorders: No Pertinent History Other Medical History: PROLAPSED VALVE - Past Surgical History Past Surgical History: No - Social History Smoking Status: Current every day smoker How long have you smoked: 7 years Exposure to second hand smoke: Yes Drug Use: none Patient Lives Alone: No - Female History Hx Last Menstrual Period: irregular Hx Now: No - Nursing Vital Signs Nursing Vital Signs: Initial Vital Signs Pulse Rate 119 H 09/11/21 16:24 Respiratory Rate 18 09/11/21 16:24 Blood Pressure 128/84 09/11/21 16:24 O2 Sat by Pulse Oximetry 100 09/11/21 16:24 Pain Scale Pain Intensity 0 - Physical Exam General Appearance: anxiety Eye Exam: PERRL/EOMI, eyes nml inspection Ears, Nose, Throat Exam: normal ENT inspection Neck Exam: normal inspection, supple, full range of motion Respiratory Exam: normal breath sounds, lungs clear Cardiovascular Exam: normal heart sounds, tachycardia Gastrointestinal/Abdomen Exam: soft, normal bowel sounds, No tenderness Back Exam: normal inspection, normal range of motion Extremity Exam: normal inspection, normal range of motion Neurologic Exam: alert, 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, cooperative, gas pipe layer II-XII nml as tested, nml cerebellar function, nml station & gait, sensation nml, No normal mood/affect (Anxious), No motor deficits Skin Exam: normal color SpO2 Interpretation: normal SpO2: 100 O2 Delivery: Room Air - Course EKG Interpreted by Me: RATE ([id number]), Sinus Tach, NORMAL AXIS, NORMAL INTERVALS, NORMAL QRS Ordered Tests: Active Orders 24 hr Category Date Time Status IV Insertion STAT Care 09/11/21 17:40 Active CBC W DIFF Stat Lab 09/11/21 17:08 Completed CMP Stat Lab 09/11/21 17:08 Completed D-DIMER QUANTITATIVE Stat Lab 09/11/21 17:08 Completed MAGNESIUM Stat Lab 09/11/21 17:08 Completed TROPONIN Q4H Lab 09/11/21 17:08 Completed TROPONIN Q4H Lab 09/11/21 21:00 Ordered TROPONIN Q4H Lab 09/12/21 01:00 Ordered Medication Summary Discontinued Medications Generic Name Dose Route Start Last Admin Trade Name Freq PRN Reason Stop Dose Admin Lorazepam 1 mg 09/11/21 17:01 09/11/21 17:42 Lorazepam 1 Mg Tablet PO 09/11/21 17:02 1 mg STAT ONE Administration Lorazepam Confirm 09/11/21 17:41 Lorazepam 1 Mg Tablet Administered 09/11/21 17:42 Dose 1 mg .ROUTE .STK-MED ONE Lab/Rad Data: Laboratory Result Diagrams 09/11/21 17:08 09/11/21 17:08 Laboratory Results 09/11/21 09/11/21 09/11/21 Range/Units 17:08 17:08 17:08 WBC 8.7 (4.0-10.5) x10^3/uL RBC 5.07 (4.1-5.4) x10^6/uL Hgb 12.9 (12.0-16.0) g/dL Hct 42.8 (35-47) % MCV 84.4 (78-100) fL MCH 25.4 L (26-32) pg MCHC 30.1 L (32-36) g/dL RDW 15.5 H (11.5-14.0) % Plt Count 240 (150-450) x10^3/uL MPV 10.5 (7.5-11.0) fL Gran % 70.9 H (36.0-66.0) % Immature Gran % (Auto) 0.3 (0.00-0.4) % Nucleat RBC Rel Count 0.0 (0.00-0.1) % Eos # (Auto) 0.17 (0-0.5) x10^3/uL Immature Gran # (Auto) 0.03 (0.00-0.03) x10^3u/L Absolute Lymphs (auto) 1.65 (1.0-4.6) x10^3/uL Absolute Monos (auto) 0.59 (0.0-1.3) x10^3/uL Absolute Nucleated RBC 0.00 (0.00-0.01) x10^3u/L Lymphocytes % 19.0 L (24.0-44.0) % Monocytes % 6.8 (0.0-12.0) % Eosinophils % 2.0 (0.00-5.0) % Basophils % 1.0 (0.0-0.4) % Absolute Granulocytes 6.14 (1.4-6.9) x10^3/uL Basophils # 0.09 (0-0.4) x10^3/uL D-Dimer < 0.19 (0.0-0.50) mg/L Sodium 139 (137-145) mmol/L Potassium 3.8 (3.5-5.1) mmol/L Chloride 107 (98-107) mmol/L Carbon Dioxide 19 L (22-30) mmol/L Anion Gap 15.9 H (5-15) MEQ/L BUN 9 (7-17) mg/dL Creatinine 0.63 (0.52-1.04) mg/dL Estimated GFR > 60.0 ML/MIN Glucose 112 H (74-106) mg/dL Calcium 8.9 (8.4-10.2) mg/dL Magnesium 2.0 (1.6-2.3) mg/dL Total Bilirubin 1.10 (0.2-1.3) mg/dL AST 29 (14-36) U/L ALT 18 (0-35) U/L Alkaline Phosphatase 86 (38-126) U/L Troponin I (0.000-0.034) ng/mL Serum Total Protein 8.0 (6.3-8.2) g/dL Albumin 4.3 (3.5-5.0) g/dL 09/11/21 Range/Units 17:08 WBC (4.0-10.5) x10^3/uL RBC (4.1-5.4) x10^6/uL Hgb (12.0-16.0) g/dL Hct (35-47) % MCV (78-100) fL MCH (26-32) pg MCHC (32-36) g/dL RDW (11.5-14.0) % Plt Count (150-450) x10^3/uL MPV (7.5-11.0) fL Gran % (36.0-66.0) % Immature Gran % (Auto) (0.00-0.4) % Nucleat RBC Rel Count (0.00-0.1) % Eos # (Auto) (0-0.5) x10^3/uL Immature Gran # (Auto) (0.00-0.03) x10^3u/L Absolute Lymphs (auto) (1.0-4.6) x10^3/uL Absolute Monos (auto) (0.0-1.3) x10^3/uL Absolute Nucleated RBC (0.00-0.01) x10^3u/L Lymphocytes % (24.0-44.0) % Monocytes % (0.0-12.0) % Eosinophils % (0.00-5.0) % Basophils % (0.0-0.4) % Absolute Granulocytes (1.4-6.9) x10^3/uL Basophils # (0-0.4) x10^3/uL D-Dimer (0.0-0.50) mg/L Sodium (137-145) mmol/L Potassium (3.5-5.1) mmol/L Chloride (98-107) mmol/L Carbon Dioxide (22-30) mmol/L Anion Gap (5-15) MEQ/L BUN (7-17) mg/dL Creatinine (0.52-1.04) mg/dL Estimated GFR ML/MIN Glucose (74-106) mg/dL Calcium (8.4-10.2) mg/dL Magnesium (1.6-2.3) mg/dL Total Bilirubin (0.2-1.3) mg/dL AST (14-36) U/L ALT (0-35) U/L Alkaline Phosphatase (38-126) U/L Troponin I < 0.012 (0.000-0.034) ng/mL Serum Total Protein (6.3-8.2) g/dL Albumin (3.5-5.0) g/dL - Progress Progress: improved Progress Note: 09/11/21 18:10 She is given Ativan for symptomatic relief, on reevaluation feeling better. Normal troponin and D-dimer. Chemistry is grossly unremarkable. I believe patient was hyperventilating and causing numbness and does have panic attacks. I would give her hydroxyzine and have her outpatient follow-up with primary care. Patient has bilateral clear lungs to auscultation and has x-rays done few days ago, do not think needs another imaging. She denies suicidal or homicidal ideation. Good support system at home. Recommended outpatient follow-up. Discussed signs symptoms of worsening needing return to ER which she seems understanding. Counseled pt/family regarding: lab results, diagnosis, need for follow-up, smoking cessation - Departure Departure Disposition: Home Clinical Impression: Panic attack as reaction to stress Condition: Stable Critical Care Time: No Referrals: JEF ANNE MD [Primary Care Provider] - Follow up/PCP as directed (In 2 days for reevaluation) Instructions: Anxiety, Adult (DC) Additional Instructions: Take hydroxyzine as needed. Follow-up with primary care for reevaluation. Return to ER if having intractable chest pain, difficulty breathing, ideas of suicide/homicide etc. Prescriptions: Hydroxyzine HCl 25 mg [Atarax 25 mg] 25 mg PO Q6H PRN #12 tablet PRN Reason: Itching
[2021-09-11 17:11] LABS: Absolute Neutrophil Ct (ANC) 6.14 x10^3/uL (1.4-6.9); Basophil (Absolute #) 0.09 x10^3/uL (0-0.4); Eosinophil (Absolute #) 0.17 x10^3/uL (0-0.5); Hematocrit 42.8 % (35-47); Hemoglobin 12.9 g/dL (12.0-16.0); Lymphocyte (Absolute #) 1.65 x10^3/uL (1.0-4.6); Mean Cell Volume 84.4 fL (78-100); Mean Corpuscular Hemoglobin 25.4 pg (26-32); Mean Corpuscular Hgb Concent. 30.1 g/dL (32-36); Mean Platelet Volume 10.5 fL (7.5-11.0); Monocyte (Absolute #) 0.59 x10^3/uL (0.0-1.3); Monocytes % 6.8 % (0.0-12.0); Neutrophil % 70.9 % (36.0-66.0); Platelet Count 240 x10^3/uL (150-450); Red Blood Count 5.07 x10^6/uL (4.1-5.4); Red Cell Distribution Width 15.5 % (11.5-14.0); White Blood Count 8.7 x10^3/uL (4.0-10.5)
[2021-09-11 17:28] LABS: ALBUMIN 4.3 g/dL (3.5-5.0); ALKALINE PHOSPHATASE 86 U/L (38-126); ANION GAP 15.9 MEQ/L (5-15); BLOOD UREA NITROGEN 9 mg/dL (7-17); CHLORIDE 107 mmol/L (98-107); Calcium 8.9 mg/dL (8.4-10.2); Carbon Dioxide 19 mmol/L (22-30); Creatinine 1 0.63 mg/dL (0.52-1.04); EST GLOMERULAR FILTRATION RATE > 60.0 ML/MIN; Glucose 112 mg/dL (74-106); Potassium 3.8 mmol/L (3.5-5.1); SGOT/AST 29 U/L (14-36); SGPT/ALT 18 U/L (0-35); SODIUM 139 mmol/L (137-145)
[2021-09-11] MEDS ORDERED: Ativan 1 MG ONE (17:41)
[2021-09-11 18:16] VITALS: BP 128/64; PULSE 74; O2SAT 98
== END 2021-09-11 18:31 | disposition home or self-care (01) ==
LOC: ED 16:23
DX: F43.0 Acute stress reaction (principal); Z72.0 Tobacco use
CPT/HCPCS: 36000; 36415; 80053; 83735; 84484; 85025; 85379; 99283; A9270-GY

== ENCOUNTER 2021-10-03 15:22 | Emergency (ER) | payer OTHER ==
[2021-10-03] MEDS ORDERED: TETRACAINE 0.5% STERI-UNIT SOL OP ONE (15:35)
[2021-10-03] MEDS ORDERED: Fluor-I-Strip/Ful-Flo OP ONE (15:52)
--- NOTE | 2021-10-03 16:05 | ERPHSYRPT ---
- History of Present Illness Source: patient Exam Limitations: no limitations Patient Subjective Stated Complaint: pt to ER with complaints of right eye pain/injury. pt states she got hit in the eye with a cardboard box this morning around 1030 am. Triage Nursing Assessment: pt to ER with complaints of right eye pain. pt got hit with a cardboard box in the eye this morning. pt ambulatory, skin pwd. pt alert and oriented. Physician History: 31 yo wf scrapped across a cardboard box at work today injuring her R eye. Pt does not wear contact lenses or glasses. Timing/Duration: today Location: right eye Severity: moderate Apparent Injury: yes Associated Symptoms: pain, burning, sensitivity to light, redness, foreign body sensation, blurred vision Visual Assistive Devices: None Chemical Exposure: No Trauma: Yes (Cardboard box) Allergies/Adverse Reactions: amoxicillin [From Augmentin] Allergy (Verified 10/03/21 15:41) clavulanic acid [From Augmentin] Allergy (Verified 10/03/21 15:41) Home Medications: Citalopram Hydrobromide [Celexa] 10 mg PO DAILY 10/03/21 [History] Metoprolol Succinate [Kapspargo Sprinkle] 25 mg PO DAILY 10/03/21 [History] Hx Tetanus, Diphtheria Vaccination/Date Given: No Hx Influenza Vaccination/Date Given: Yes (2011) Hx Pneumococcal Vaccination/Date Given: No Travel Risk - International Travel Have you traveled outside of the country in past 3 weeks: No - Coronavirus Screening Are you exhibiting any of the following symptoms?: No - Vaccine Status Have you recieved a Covid-19 vaccination: No [address] Justice: Moderna - Vaccination Dates Date of 2cond Vaccination (if applicable): 2020 - Review of Systems Constitutional: No Symptoms Eyes: Eye Pain, Eye Redness Ears, Nose, & Throat: No Symptoms Respiratory: No Symptoms Cardiac: No Symptoms Abdominal/Gastrointestinal: No Symptoms Genitourinary Symptoms: No Symptoms Musculoskeletal: No Symptoms Skin: No Symptoms Neurological: No Symptoms Psychological: No Symptoms Endocrine: No Symptoms Hematologic/Lymphatic: No Symptoms Immunological/Allergic: No Symptoms - Past Medical History Pertinent Past Medical History: Yes Neurological History: No Pertinent History ENT History: No Pertinent History Cardiac History: Other Respiratory History: No Pertinent History Endocrine Medical History: No Pertinent History Musculoskeletal History: No Pertinent History GI Medical History: No Pertinent History History: No Pertinent History Psycho-Social History: No Pertinent History Female Reproductive Disorders: No Pertinent History Other Medical History: PROLAPSED VALVE - Past Surgical History Past Surgical History: No Female Surgical History: Section - Social History Smoking Status: Current every day smoker How long have you smoked: 7 years Exposure to second hand smoke: Yes Drug Use: none Patient Lives Alone: No Significant Family History: no pertinent family hx - Female History Hx Last Menstrual Period: 07/26/2021 Hx Now: No - Nursing Vital Signs Nursing Vital Signs: Initial Vital Signs Temperature 97.0 F 10/03/21 15:31 Pulse Rate 74 10/03/21 15:31 Respiratory Rate 18 10/03/21 15:31 Blood Pressure 154/62 10/03/21 15:31 O2 Sat by Pulse Oximetry 100 10/03/21 15:31 Pain Scale Pain Intensity 6 Hypertensive/Pt unable to open R eye for visual acuity - Physical Exam General Appearance: no apparent distress Eye Exam: right eye: corneal abrasion, bilateral eye: PERRL, EOMI Ears, Nose, Throat Exam: normal ENT inspection, TMs normal, pharynx normal Neck Exam: normal inspection, non-tender, supple, full range of motion, No meningismus, No mass, No Brudzinski, No Kernig's Respiratory Exam: normal breath sounds, lungs clear, airway intact Cardiovascular Exam: regular rate/rhythm, normal heart sounds, normal peripheral pulses, capillary refill <2 sec, No murmur Gastrointestinal Exam: soft, normal bowel sounds Extremity Exam: normal inspection, normal range of motion Neurologic: alert, 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, cooperative, manifold builder II-XII nml as tested, normal mood/affect, nml cerebellar function, nml station & gait, sensation nml Skin Exam: normal color, warm, dry Lymphatic: No adenopathy SpO2 Interpretation: normal SpO2: 100 O2 Delivery: Room Air - Course Nursing assessment & vital signs reviewed: Yes Ordered Tests: Medication Summary Discontinued Medications Generic Name Dose Route Start Last Admin Trade Name Freq PRN Reason Stop Dose Admin Hydrocodone Bitart/Acetaminophen 1 tablet 10/03/21 16:06 10/03/21 16:10 Hydrocodone/Acetamin 10-325 Mg Tablet PO 10/03/21 16:07 1 tablet STAT ONE Administration Fluorescein Sodium Confirm 10/03/21 15:52 Fluorescein Sodium 1 Mg/Strip Strip Administered 10/03/21 15:53 Dose 1 mg OP .STK-MED ONE Tetracaine HCl Confirm 10/03/21 15:35 Tetracaine Hcl/Pf 4 Ml Bottle Administered 10/03/21 15:36 Dose 4 ml OP .STK-MED ONE - Progress Progress: improved Progress Note: 10/03/21 16:03 Tetracaine R eye PERRLDC/EOMI Probable corneal abrasion on visual inspection Fluorescein applied UV exam w corneal abrasion from 5-7 on lower pupil/No tear Eye irrigated w saline flush Norco10 po x1 Counseled pt/family regarding: diagnosis, need for follow-up - Departure Departure Disposition: Home Clinical Impression: Corneal abrasion, right Condition: Stable Critical Care Time: No Referrals: JEF ANNE MD [Primary Care Provider] - Follow up/PCP as directed Instructions: Corneal Abrasion (DC) Additional Instructions: Go to a dark room and keep eye shut for 12 hours Do not rub eye 2drops of Ciloxan to right eye every 4 hours for 5 days Follow up with your eye doctor Return to ER for increasing pain, worsening vision, or temperature greater than 100.5 Forms: Work/School Release Form Prescriptions: Ciprofloxacin HCl [Ciloxan] 2 drops OP QID 5 Days #2.5 ml
[2021-10-03] MEDS ORDERED: HYDROCODONE-ACETAMIN 10-325 MG PO ONE (16:06)
[2021-10-03 16:17] VITALS: BP 111/67; PULSE 67
[2021-10-03 20:00] VITALS: O2SAT 100
== END 2021-10-03 16:22 | disposition home or self-care (01) ==
LOC: ED 15:22
DX: S05.01XA Injury of conjunctiva and corneal abrasion without foreign body, right eye, initial encounter (principal); W20.8XXA Other cause of strike by thrown, projected or falling object, initial encounter; Y99.0 Civilian activity done for income or pay; H57.11 Ocular pain, right eye; Z72.0 Tobacco use; Z79.899 Other long term (current) drug therapy
CPT/HCPCS: 99281; A9270-GY